=== PATIENT | female | born 1970 | race Asian ===

== ENCOUNTER 2018-02-12 21:01 | Emergency (ER) | payer OTHER ==
[2018-02-12] MEDS ORDERED: PHENAZOPYRIDINE HCL 200 MG TAB PO ONE (21:16)
[2018-02-12] MEDS ORDERED: NS 1,000 ML IV ONE (21:45)
--- NOTE | 2018-02-12 21:47 | EDPHY ---
General - History Smoking Status: Never smoked Time Seen by Provider: 02/12/18 21:37 Narrative: CHIEF COMPLAINT: The frequent urination HISTORY OF PRESENT ILLNESS: Patient presents with complaints of frequent urination. She says around 6:00 p.m., she 1st noticed the symptoms. She has felt as if she needed to go to the bathroom "every 3 minutes." She describes incomplete voids. Some dysuria. Some suprapubic discomfort. No flank pain. No fever, chills, nausea vomiting. No trauma or injury. She has seen some specks of blood in the urine. No other associated complaints or modifying factors. REVIEW OF SYSTEMS: Ten systems reviewed and are negative unless otherwise noted in the HPI PCP: Dr. Etienne SPECIALISTS: None PAST MEDICAL HISTORY: Denies any medical diagnoses PAST SURGICAL HISTORY: No surgical history SOCIAL HISTORY: Never smoker. Lives here independently with her spouse. Works as a software product specialist FAMILY HISTORY: Noncontributory EXAMINATION General Appearance: Alert, no distress Head: normocephalic, atraumatic Eyes: Pupils equal and round, no conjunctival pallor or injection ENT, Mouth: Mucous membranes moist Neck: Normal inspection, supple, non-tender Respiratory: Lungs are clear to auscultation Cardiovascular: Regular rate and rhythm. No murmur Gastrointestinal: Abdomen is soft and nondistended. Mild tenderness in the suprapubic abdomen. No guarding. No rebound. No tympany rigidity. No palpable mass. No CVA tenderness. Benign abdominal examination Back: non-tender, no bony abnormalities Neurological: A&O, nonfocal, normal gait Skin: Warm and dry, no rash Extremities: Nontender, no pedal edema Psychiatric: Mood and affect normal DIFFERENTIAL DIAGNOSES: Including but not limited to cystitis, urethritis, pyelonephritis, urinary tract infection, hematuria, bladder spasm MDM: 9:45 p.m. Urinary frequency with dysuria and urinalysis that does reveal evidence of urinary tract infection with microscopic hematuria. Suspect simple cystitis versus urethritis. She has a normal abdominal examination is benign. She has no flank pain, fever, nausea vomiting. Vital signs are within limits. She is having the would. She is resting comfortably in no acute distress. 10:12 p.m. CBC, chemistry and lipase are all within normal limits. Her urine is very concentrated, thus we will continue to hydrate her with IVF. 11:15 p.m. Patient re-evaluated. She has received IV fluid, IV Rocephin and pyridium. She is feeling significantly better but does have some chills. I think this is likely due to the IV fluid. Laboratory studies within normal limits with positive urinary tract infection on UA. I will treat her for acute cystitis with microscopic hematuria. I selected Keflex for her and I have ordered a urine culture. I provided short course of pyridium. I discussed ED precautions and follow up with primary care physician. The patient is comfortable this plan and discharged home stable condition. SUPERVISION: Patient was independently examined, but I discussed the case with my secondary supervising physician Dr. Gonzalez ([facility]) Discussion: The patient was evaluated and managed by the Physician Prototype Engineer. I discussed the patient's presentation and course with the physician orthodontic technician assistant and agree with the evaluation. My co-signature indicates that I have reviewed this chart and I agree with the findings and plan of care as documented. I am the secondary supervising physician. (Catalina Gonzalez) - Objective Vital Signs: Initial Vital Signs Temperature (C) 36.7 C 02/12/18 21:04 Heart Rate 87 02/12/18 21:04 Respiratory Rate 16 02/12/18 21:04 Blood Pressure 104/72 02/12/18 21:04 O2 Sat (%) 98 02/12/18 21:04 O2 Delivery Mode Room Air Allergies/Adverse Reactions: No Known Allergies Allergy (Unverified 02/12/18 21:07) Home Medications: Medication Instructions Recorded Cephalexin [Keflex (*)] 500 mg PO QID #24 cap 02/12/18 Phenazopyridine HCl [Pyridium] 200 mg PO TID #5 tab 02/12/18 Laboratory Results: Laboratory Results 02/12/18 21:40 02/12/18 21:40 Medications Given: Discontinued Medications Cephalexin (Keflex 500 Mg Prepack#4) 1 btl TAKEHOME EDNOW ONE PRN Reason: Protocol Stop: 02/12/18 22:45 Last Admin: 02/12/18 23:05 Dose: 1 btl Ceftriaxone Sodium/Dextrose (Rocephin 1 Gm (Premix)) 50 mls @ 100 mls/hr IV EDNOW ONE PRN Reason: Protocol Stop: 02/12/18 22:15 Last Admin: 02/12/18 21:51 Dose: 50 mls Sodium Chloride (Ns) 1,000 mls @ 0 mls/hr IV ONCE ONE PRN Reason: Wide Open Stop: 02/12/18 21:46 Last Admin: 02/12/18 22:01 Dose: 1,000 mls Ibuprofen (Motrin) 400 mg PO ONCE ONE Stop: 02/12/18 23:17 Last Admin: 02/12/18 23:20 Dose: 400 mg Phenazopyridine HCl (Pyridium) 200 mg PO EDNOW ONE Stop: 02/12/18 21:17 Last Admin: 02/12/18 21:18 Dose: 200 mg Departure - Departure Disposition: Home, Routine, Self-Care Clinical Impression: UTI (urinary tract infection) Condition: Good Instructions: Cephalexin (By mouth), Phenazopyridine (By mouth), Urinary Tract Infection in Women (ED) Additional Instructions: 1. Keflex 500 mg 4 times daily for 7 days 2. Pyridium for 2 days as prescribed as needed 3. Contact primary care physician for outpatient follow-up 4. Return to emergency department for any further discomfort, difficulty urinating, flank pain, fever, nausea vomiting 5. Ibuprofen 400-600 mg every 6-8 hours as needed for pain Referrals: Patient,NotPresent [Primary Care Provider] - As per Instructions ABEL PORTILLO [Non Staff Provider ()] - As per Instructions Stand Alone Forms: Airline Excuse Prescriptions: Cephalexin [Keflex (*)] 500 mg PO QID #24 cap Phenazopyridine HCl [Pyridium] 200 mg PO TID #5 tab
[2018-02-12 21:51] LABS: PLATELET COUNT 226 10^3/uL (150-400)
[2018-02-12 22:10] LABS: INR 0.88 (0.83-1.16); PROTIME(PATIENT) 12.2 SEC (12.0-15.0)
[2018-02-12] MEDS ORDERED: CEPHALEXIN 500MG PREPACK#4 BTL TAKEHOME ONE (22:44)
[2018-02-12 23:16] VITALS: BP 112/76
[2018-02-12] MEDS ORDERED: IBUPROFEN 200 MG TAB PO ONE (23:16)
== END 2018-02-12 23:34 | disposition home or self-care (01) ==
DX: N30.01 Acute cystitis with hematuria (principal); B96.20 Unspecified Escherichia coli [E. coli] as the cause of diseases classified elsewhere
CPT/HCPCS: 96365; J0696